=== PATIENT | female | born 1985 | race Caucasian/White ===

== ENCOUNTER 2017-02-01 17:13 | Observation (INO) | payer BC ==
[~2017-02-01] VITALS: Ht 160 cm; Wt 65.1 kg
[2017-02-03] MEDS ORDERED: LOPRESSOR DPS50 MG PO (14:59)
[2017-02-03] MEDS ORDERED: NORVASC DPS10 MG PO (14:59)
[2017-02-03] MEDS ORDERED: ZOCOR DPS10 MG PO (14:59)
[2017-02-03] MEDS ORDERED: ROCALTROL DPS0.5 MCG PO (14:59)
[2017-02-03] MEDS ORDERED: NORCO 5-325 TA1 EACH PO (15:00)
[2017-02-03] MEDS ORDERED: NOVOLOG100 UNIT/2 SQ ×2 (15:00)
[2017-02-03] MEDS ORDERED: PHOS-LO667 MG PO (15:00)
--- NOTE | 2017-02-07 11:36 | HP ---
ADMIT: 02/01/2017 RM/LOC: [facility] MR#: [id number] [id number] [place], [place] [address] JOSÉ MIGUEL SNELL [address] [address] History and Physical SEX: F AGE: 32 : 1985 DATE OF SERVICE: CHIEF COMPLAINT AND HISTORY OF THE PRESENT ILLNESS: This 32-year-old female was seen in the office on the day of admission, complaining of pain. Pains were located in the lower abdomen, in the suprapubic area, but also in the right upper quadrant. She had some nausea and vomiting with this. She also had some diarrhea. She vomited, no blood. She was found to have a low-grade fever and a high white count. The patient was sent to the hospital. Ultrasound revealed an abnormality in her gallbladder area, and she is admitted for further evaluation. PREVIOUS MEDICAL HISTORY: The patient's major problem in the past has been chronic renal failure and she has seen the rehabilitation nurse for this. The patient has had diabetic retinopathy and has had a large pre-retinal hemorrhage at the inferior retinal vessels. Other problems include atypical squamous cells of undetermined significance on the Pap smear previously. MEDICATIONS: 1. Norvasc 10 mg daily. 2. Metoprolol 50 mg b.i.d. 3. Zocor 10 mg daily. 4. Hydralazine 10 mg t.i.d. 5. NovoLog 30 units in a.m. and 35 units in p.m. ALLERGIES: NONE. SOCIAL HISTORY: The patient has been for seven years. She works in [employer]. She has never smoked. She takes no illicit drugs or caffeine. FAMILY HISTORY: Father has diabetes. REVIEW OF SYSTEMS: HEENT: The patient has worn glasses and has diabetic retinopathy. CARDIORESPIRATORY: The patient has a history of hypertension. No myocardial infarctions, chest pains, dyspnea, or congestive heart failure. There is no history of smoking, pneumonia, or lung disease. GI: Previously-mentioned nausea, vomiting, and abdominal pain. She still has her gallbladder and appendix. : The patient has chronic renal failure. She has been seen by a rehabilitation nurse and she has had placement of a dialysis tube. METABOLIC/ENDOCRINE: The patient has a history of hypercholesterolemia, but no thyroid disease. MUSCULOSKELETAL: No significant problems. PHYSICAL EXAMINATION: VITAL SIGNS: Blood pressure is 150/82, temperature is 98.8, respirations 16, pulse 80 and regular. Weight 143 pounds. BMI is 26.58. GENERAL: The patient is a well-nourished, well-developed female, who is ADMIT: 02/01/2017 RM/LOC: 526 [facility] MR#: [id number] [address] [address] [facility] [address] [place] [address] History and Physical SEX: F AGE: 32 : 1985 alert, cooperative, and oriented x3. HEENT: Head - normocephalic without exostoses. ANIKA. Throat within normal limits. NECK: Neck veins not distended. Thyroid not enlarged. CHEST: Clear to percussion and auscultation. HEART: Regular rhythm with no murmur heard. No clinical evidence of cardiomegaly. ABDOMEN: Tenderness in the suprapubic area as well as the right lower quadrant as well as the right upper quadrant. The liver does not appear to be enlarged. Spleen is not palpable. No abnormal masses are otherwise present. GENITALIA: Deferred. EXTREMITIES: No cyanosis, clubbing or edema. ASSESSMENT: 1. Cholecystitis. 2. Chronic renal failure. 3. Insulin-dependent diabetes mellitus. 4. Hypercholesterolemia. 5. Hypertension. PLAN: Micky Car MD/ candis JOB #: [id number] CC: Micky Car, Attending Physician Micky Car, Family Physician
--- NOTE | 2017-02-17 12:22 | CO ---
ADMIT: 02/01/2017 RM/LOC: [address] [place] [address] MR#: [id number] [address] [place], [place] [address] JOSÉ MIGUEL SNELL [address] [address] Consultation SEX: F AGE: 32 : 1985 DATE OF CONSULTATION: 02/01/2017 ATTENDING PHYSICIAN: Micky Car CONSULTING PHYSICIAN: Sonny Sykes MD REASON FOR CONSULTATION: Acute cholecystitis. HISTORY OF PRESENT ILLNESS: This patient is a pleasant 32-year-old female. When visiting with her, it sounds like she may be sick since Sunday, off and on, having some abdominal pain, ultimately seen by Dr. Car in the office. She complained of kind of lower abdominal pain as well as right upper quadrant pain, nausea, vomiting, some diarrhea and ultimately sent her over for an ultrasound that showed evidence of stones and acute cholecystitis per report from Dr. Car, I do not have the actual report of the ultrasound at this point. She does have a chronic history of chronic renal insufficiency and renal failure, followed by Nephrology. She has a history of diabetic retinopathy and diabetes. MEDICATIONS: Include: 1. Norvasc 10 mg a day. 2. Zocor 10 mg a day. 3. Metoprolol 50 mg b.i.d. 4. Hydralazine 10 mg t.i.d. 5. NovoLog. ALLERGIES: SHE HAS NO KNOWN DRUG ALLERGIES. SOCIAL HISTORY: She is . Never smoked. No illicit drugs. No significant alcohol or caffeine. FAMILY HISTORY: Of diabetes. REVIEW OF SYSTEMS: Positive for the above, but otherwise no other significant findings on review of systems. The abdominal pain, nausea, and vomiting. PHYSICAL EXAM: VITAL SIGNS: Currently she is afebrile. Vital signs are ADMIT: 02/01/2017 RM/LOC: 6 [facility] MR#: [id number] [address] [facility] [address] [place], [place] [address] JOSÉ MIGUEL SNELL [address] [address] Consultation SEX: F AGE: 32 : 1985 stable. HEENT: Her sclerae are nonicteric. CHEST: Clear. HEART: Regular rate and rhythm. ABDOMEN: Soft. Tenderness in the right side of the abdomen and right upper quadrant. No other mass detected. No hernias. She has had C-sections, well- healed scar. EXTREMITIES: No clubbing or cyanosis or significant edema. ASSESSMENT: At this point, acute cholecystitis. PLAN: Laparoscopic cholecystectomy tomorrow. Sonny Sykes MD/ candis JOB #: [id number] CC: Micky Car, Attending Physician Micky Car, Family Physician
--- NOTE | 2017-03-23 10:23 | OR ---
ADMIT: 02/01/2017 RM/LOC: 526 [facility] MR#: [id number] 2620 [facility] [address] [place] [id number] JOSÉ MIGUEL SNELL [address] [address] Operative/Delivery Room Report SEX: F AGE: 32 : 1985 SURGERY DATE: 02/01/2017 SURGEON: Linden Person MD ADDENDUM: Janes Mchugh was needed for first assistance for adequate exposure and treatment of the patient's acute cholecystitis to avoid bleeding or common bile duct injury. Linden Person MD/ modl JOB #: [id number] CC: Micky Car MD, Attending Physician Micky Car MD, Family Physician
--- NOTE | 2017-04-30 08:57 | OR ---
ADMIT: 02/01/2017 RM/LOC: 526 [facility] MR#: [id number] [address] [facility] [address] [place], [place] [address] JOSÉ MIGUEL SNELL [address] [address] Operative/Delivery Room Report SEX: F AGE: 32 : 1985 CORRECTION: 04/07/2017 0923 vd SURGERY DATE: 02/02/2017 SURGEON: Linden Person MD NEEDLE FELT MAKING MACHINE OPERATOR: MISSAEL Vang, who was needed for adequate exposure and assistance to complete this procedure safely. PREPROCEDURE DIAGNOSIS: Acute cholecystitis. POSTPROCEDURE DIAGNOSIS: Acute cholecystitis. PROCEDURE: Laparoscopic cholecystectomy with intraoperative cholangiogram. INDICATIONS: The patient is a 32-year-old with signs, symptoms, and radiographic evidence consistent with acute cholecystitis, who presents for laparoscopic cholecystectomy. FINDINGS: The patient was taken to the operating room, general endotracheal anesthesia was induced. The patient's abdomen was prepped and draped in normal sterile fashion. The case was begun by making a transverse, supraumbilical 5 mm skin incision using #11 blade. A retractable 5-mm port was placed within the abdomen. The abdomen was insufflated with CO2 to an intra-abdominal pressure of 15 mmHg. A camera was placed showing no bowel or vascular injury. A midepigastric 11 mm port as well as 2 right upper quadrant 5 mm ports were placed under direct vision. The case was begun by grasping the fundus of the gallbladder using an atraumatic clamp. A second atraumatic was then used to grasp the infundibulum. A [place] instrument with electrocautery was used to dissect out the cystic duct and artery without difficulty. A proximal clip was placed on the duct, the duct was cut in half and the cholangiogram catheter was placed and a cholangiogram was shot showing no filling defects with contrast flow into the duodenum as well as intrahepatic ductal filling of contrast. The cholangiogram catheter was then removed. Three distal cystic duct clips were applied and the duct was then severed. Two proximal, one distal cystic arterial clip was applied and the artery was severed. The remainder of dissection was carried out using electrocautery from a posterior- to-anterior fashion, removing the gallbladder from liver bed. The gallbladder was placed in EndoCatch bag and brought out through the midepigastric port site after having to enlarge both the skin and fascial incisions due to a largely impacted gallbladder with thousands of stones, which we had to try to eviscerate just to accommodate, getting the gallbladder through the fascia. Once we were able to do this time, we did not spill any stones intra- abdominally. We reexamined the operative site, there was some venous ooze from ADMIT: 02/01/2017 RM/LOC: 526 [facility] MR#: [id number] [address] [address] JOSÉ MIGUEL SNELL [address] [place] [address] Operative/Delivery Room Report SEX: F AGE: 32 : 1985 the hepatic gallbladder fossa bed, we suctioned out, irrigated, and achieved a complete hemostasis using electrocautery. The air was then irrigated and suctioned out. Marcaine 0.5% was injected subdermally, subfascially for postoperative analgesia. The midepigastric fascial incision was closed with 2 separate interrupted [id number] Polysorb suture passers. The air was desufflated and the port sites removed. The skin sites were closed with interrupted 4-0 Vicryl subcuticular skin stitches. Wounds were cleaned and dried. Steri-Strips and Tegaderms were applied over the top. Needle, sponge, and instrument counts were correct at the end of case. The patient was extubated and went to recovery room in good condition. Linden Person MD/ candis JOB #: [id number] CC: Micky Car, Attending Physician Micky Car, [facility] Physician CORRECTION: 04/07/2017 0923 vdg
== END 2017-02-02 20:45 | disposition home or self-care (01) ==
LOC: 5MS 17:13
PROC: 0FT44ZZ Resection of Gallbladder, Percutaneous Endoscopic Approach (ICD-10-PCS; principal; 2017-02-02)
PROC: BF13YZZ Fluoroscopy of Gallbladder and Bile Ducts using Other Contrast (ICD-10-PCS; principal; 2017-02-02)
DX: K80.10 Calculus of gallbladder with chronic cholecystitis without obstruction (principal); E11.22 Type 2 diabetes mellitus with diabetic chronic kidney disease; I12.9 Hypertensive chronic kidney disease with stage 1 through stage 4 chronic kidney disease, or unspecified chronic kidney disease; N18.9 Chronic kidney disease, unspecified; E78.00 Pure hypercholesterolemia, unspecified; Z79.899 Other long term (current) drug therapy